=== PATIENT | female | born 1965 | race Caucasian/White ===

== ENCOUNTER 2025-09-16 00:35 | Inpatient (IN) | payer OTHER, SELFPAY ==
[2025-09-15 19:56] VITALS: BP 159/83
[2025-09-15 20:17] LABS: Urine Character Clear (Clear)
[2025-09-15 20:28] LABS: Urine Red Blood Cell 0-2 /HPF (0-2)
[2025-09-15 22:30] VITALS: BMI 22.2
--- NOTE | 2025-09-15 22:31 | ED.GENMED ---
History of Present Illness
General
Chief Complaint: Urinary Symptoms
Source: patient and spouse
Time Seen by Provider: 09/15/25 22:17
History of Present Illness
History of Present Illness:
This patient is a 59-year-old female who states that on August 30 she developed typical UTI symptoms described as suprapubic pressure, hematuria, urgency, frequency. Via telehealth, she obtained a prescription for Macrobid which she took for 5
days. A urine sample was not collected. She says she has felt better almost immediately after starting the antibiotic. Then, this morning she noted suprapubic pressure which is constant and nonradiating. She does not note associated dysuria
urgency frequency or hematuria. She denies flank pain, upper abdominal pain, chest pain, shortness of breath, fever, chills. She states she has been drinking a lot of water today but feels that she is urinating less than usual. She denies change
to the color of her urine. She did feel nauseous this evening but that has since resolved, no vomiting. Patient denies other complaints.
Past History
Past History
ED Past Medical History: None
ED Past Surgical History: None
Social History
Tobacco: Non-smoker
Alcohol: Occasional
Drug: None
Personal:
Living: with family
Phy Exam
Physical Exam
Physical Exam:
GENERAL: Alert , in no apparent distress
EYE: pupils equal and reactive
NECK: Supple, no significant adenopathy.
ENT: o/p clr, mmm.
CARDIAC: Regular rate and rhythm .
LUNGS: Clear breath sounds bilaterally, no acute respiratory distress, no wheezes/rales/rhonchi
ABDOMEN: Soft, mild suprapubic tenderness, no r/g, no cvat
NEUROLOGICAL: Alert and oriented, no focal neuro deficits
SKIN: Warm and dry, skin intact.
MUSCULOSKELETAL: No edema, well perfused.
PSYCH: Normal and appropriate interaction.
Course
Orders/Labs/Results
Orders:
Orders
09/15/25 20:04
Osmolality, Random Urine Urgent
Date Specimen was Collected: 09/15/25
Time Specimen was Collected: 20:01
Comment: ADD ON
Urinalysis Reflex To Culture Urgent
Date Specimen was Collected: 09/15/25
Time Specimen was Collected: 20:01
Urine Microscopic Reflex Cult Urgent
Urine Sodium Urgent
Date Specimen was Collected: 09/15/25
Time Specimen was Collected: 20:01
Comment: ADD ON
Urine Culture Urgent
ZACHARY Source: U
Specimen Description:
Date Specimen was Collected: 09/15/25
Time Specimen was Collected: 20:01
09/15/25 22:30
0.9% Sodium Chloride 1000 ml [Nss] 1,000 ml IV BOLUS
09/15/25 22:31
CT Abd/pel Without Iv Or Oral Urgent
Comment:
Reason For Exam: pain
09/15/25 22:41
Complete Blood Count/No Diff Urgent
Comprehensive Metabolic Panel Urgent
Lipase Urgent
Serum Osmolality Urgent
Comment: ADD ON
09/15/25 23:00
3% Sodium Chloride 250 ml [Sodium Chloride 3%] 250 ml IV ONCE
09/15/25 23:25
Add On- LAB Urgent
Tests Added?: urine Na
09/16/25 00:24
Admit/Transfer Patient As Directed
Co-Sign Provider:
Level of Care: Inpatient admission
Assign to:: IMU- Intermediate Care
Physician / Group: nu
Diagnosis: acute hyponatremia
Reason for Hospitalization: acute hyponatremia
Expected length of stay greater than two midnights?: Yes
ELOS- Estimated Length of Stay in days: 2
I certify the patient meets the requirements for IP care: Yes
09/16/25 00:25
PRN Pain Medication Management As Directed
May give lesser potent ordered pain med per pt: Yes
preference::
Protocol:: Medication orders for pain may be administered in a
manner that supports deferring to patient preference
when the pt is:
- Requesting an ordered lesser potent pain medication.
Least to most potent pain medications are defined
as: acetaminophen < NSAID < tramadol < opioids
(morphine, oxycodone, hydromorphone).
- Requesting a lesser dose of the same medication IF
ORDERED.
- Requesting a less intrusive route of administration
if both routes are prescribed by the provider (PO <
IV).
09/16/25 00:26
Code Status As Directed
Resuscitation Status: Full Code
09/16/25 01:47
Acetaminophen [Tylenol] 650 mg PO Q4HPRN PRN
Bisacodyl [Dulcolax] 10 mg RECTAL [id number] PRN
Docusate W/Senna [Senokot-S] 1 tablet PO BIDPRN PRN
Ondansetron Injectable [Zofran] 4 mg IV Q6HPRN PRN
Polyethylene Glycol Powder [Miralax] 17 grams PO DAILYPRN PRN
09/16/25 01:47
NEPHROLOGY CONSULT Routine
Consulting Provider: Jose May V.
Was physician already notified: Yes
Activity As Directed
Activity Level: With Assistance
Intake/ Output As Directed
Frequency: Per unit guidelines
Medical Records Request [Obtain Records] As Directed
Dates of Information to be Released: October 26 2024 - September 14 2025
Type of Information Requested: Lab Results
Obtain Records from: Tono Miranda MD, [address], [place] [place]
Neurological Checks As Directed
Frequency: q4h
Vital Signs As Directed
Frequency: Per unit guidelines
DX Deep Vein Thrombosis Video Routine
09/16/25 02:16
BMP [Basic Metabolic Panel] Routine
09/16/25 Breakfast
Regular
At Your Request: Full Participation
Fluid Restriction: 1800 mL/day (60 oz)
09/16/25 06:24
BMP [Basic Metabolic Panel] IN AM
Cortisol, Random IN AM
TSH IN AM
09/16/25 18:00
Enoxaparin Sodium [Lovenox] 40 mg SC QPM
09/18/25 11:00
DC Protocol for Telemetry ONCE
Abnormal Lab Results
09/15/25 09/15/25
20:04 22:41
RBC 3.55 L 10^6/uL
(4.20-5.40)
Hgb 11.2 L g/dL
(12.0-16.0)
Hct 31.8 L %
(37.0-47.0)
MCH 31.5 H pg
(27.0-31.0)
Sodium 115 L* mmol/L
(135-145)
Potassium 3.4 L mmol/L
(3.5-5.1)
Chloride 84 L mmol/L
(98-107)
BUN 5 L mg/dl
(7-17)
Creatinine 0.4 L mg/dL
(0.6-1.0)
Glucose 108 H mg/dl
(70-99)
Serum Osmolality 244 L mOsm/kg
(275-300)
Urine Ketones 3+ A
(Negative)
Leukocyte Esterase Rfl 1+ A
(Negative)
Urine Bacteria (Reflex) Few A
(Negative)
Urine Sodium 119 H mmol/L
(30-90)
09/15/25 22:41
09/15/25 22:41
Vital Signs
Initial and Last Documented VS:
Initial Vital Signs
Temp Pulse Resp BP Pulse Ox
98.3 F 73 16 159/83 98
09/15/25 19:56 09/15/25 19:56 09/15/25 19:56 09/15/25 19:56 09/15/25 19:56
Last Documented Vital Signs
Temp Pulse Resp BP Pulse Ox
98.7 F 79 16 120/84 95
09/16/25 14:34 09/16/25 14:34 09/16/25 14:34 09/16/25 14:34 09/16/25 14:34
*Pulse Oximetry
SaO2: 98
Oxygen Mode of Delivery: Room air
Patient hypoxic: no
*Critical Care Note
Total Time (30-74mins, 75-104mins- exclusive of procedures): Not Applicable
Update Note
Update Note:
Patient presents to the Emergency Department with ____suprapubic pressure, nausea
Number and Complexity of Problems Addressed at the Encounter
� Chronic conditions affecting care:
� Acute Exacerbation and/or Progression of Chronic Illness:
� Differential Diagnosis includes: But not limited to interstitial cystitis, UTI, kidney stone, etc. etc.
Amount and/or Complexity of Data to be Reviewed and Analyzed
� I performed an independent evaluation of and my interpretation is:
EKG:
CT:vision read: nad
Xrays:
Laboratory Studies: Severe hyponatremia 115
Other:
� Review of other/old records reveals:
� Clinical information was obtained by an independent historian: who is bedside and recalls name of antibiotic that she is taking
� Prescriptions/Medications Considered but not given:
� Further testing considered but not performed:
Risk of Complications and/or Morbidity or Mortality of Patient Management
� Social determinants of health affecting care:
� Discussion with other providers (PCP, Hospitalists, Consultants, etc):
� Escalation of care including admission/observation vs risk of discharge considered: Case discussed with nephrology Dr. May, recommends 3% normal saline x 250 mL at 20 cc/h. This was communicated with the nurse and the
hospitalist for admission. Unclear etiology of hyponatremia although her excessive water consumption is a likely contributing or primary factor. Seizure pads applied, patient and updated.
ED Attending Note
-
Portions of this chart may have been created with voice recognition software.� Occasional wrong word or��sound alike� substitutions may have occurred due to the inherent limitations of voice recognition software.
Discharge Plan
Departure
Patient Disposition: Admit
Date of Disposition: 09/15/25
Time of Disposition: 23:54
Admit to: Telemetry
Presentation/result/management discussed w/ accepting MD/DO: Hospitalist
Condition: Fair
Discharge Problem:
Acute hyponatremia
Interventions
Interventions:
*Risk Screen - Suicide Last Done: 09/15/25 19:56
*General Assessment Last Done: 09/15/25 22:34
*Neglect/Abuse Screening Last Done: 09/15/25 22:34
*ED- Fall Risk Assessment Last Done: 09/15/25 22:34
*ED COVID-19 Vaccine History Last Done: 09/15/25 22:34
*ED Influenza Vaccine History Last Done: 09/15/25 22:34
*Nursing Disposition Last Done: 09/16/25 01:45
ED-Female Genitourinary Assessment Last Done: 09/15/25 22:45
Discharge Date and Time
Discharge Date/Time: 09/16/25 01:45
[2025-09-15 22:32] VITALS: BP 149/84
[2025-09-15 22:33] VITALS: BP 149/84
[2025-09-15] MEDS: NSS 1000 IV (22:43)
[2025-09-15 22:49] LABS: Hematocrit 31.8 % (37.0-47.0); Hemoglobin 11.2 g/dL (12.0-16.0); Mean Corp Hgb Conc. 35.2 g/dL (33.0-37.0); Mean Corpuscular Volume 89.6 fL (81.0-99.0); Platelet Count 213 10^3/uL (130-400); Red Cell Dist. Width 11.6 % (11.5-14.5)
[2025-09-15 23:13] LABS: ALT (SGPT) 24 U/L (0-35); AST (SGOT) 26 U/L (14-36); Albumin 4.6 g/dl (3.5-5.0); Alkaline Phosphatase 48 U/L (38-126); Blood Urea Nitrogen 5 mg/dl (7-17); Calcium 8.7 mg/dl (8.4-10.2); Carbon Dioxide 22 mmol/L (22-30); Chloride 84 mmol/L (98-107); Estimated Creatinine Clearance 89 ml/min; Glucose 108 mg/dl (70-99); Lipase 49 U/L (23-300); Potassium 3.4 mmol/L (3.5-5.1); Sodium 115 mmol/L (135-145); Total Protein 7.1 g/dl (6.3-8.2); eGFR > 60.00
[2025-09-15 23:21] VITALS: BP 137/82
--- NOTE | 2025-09-15 23:57 | HPS.HSE ---
Family Physician
-
Family Physician: Tono Miranda
Chief Complaint
-
Abdominal pressure
History of Present Illness
Patient is a 59-year-old with no known significant past medical history presenting to the emergency department with sensation of abdominal pressure as well as fatigue.
Patient reports history of recurrent urinary tract infections and she last had a infection in the beginning of August. She had taken approximately 5 days of Macrobid with improvement in her symptoms. She says she was in usual state of health up
until the day of admission. She stated that she had sexual intercourse the previous evening and when she woke up she had abdominal pressure and pelvic pressure. She denies dysuria frequency or urgency. Due to the pressure she felt she might be
having a urinary tract infection. She denied nausea or vomiting. Denied having any diarrhea and she denied having any constipation. She decided to flush urinary system and drank 1016 ounce bottles of pure water. She also did not eat anything up
until dinnertime. She had otherwise been eating normally for her which is a form of intermittent fasting daily. She denies any alcohol use. She does not smoke. She denies any NSAID use. She denies any ngze-bxt-aeojlnt medications except for
probiotic which she took when she was on the Macrobid. She denies any prior history of seizures. She denies any prior surgeries. He is up-to-date on malignancy screening. She tells me that she had blood work within the last 3 to 6 months that
was within the normal range.
On arrival in the emergency department she was afebrile, blood pressure was 130/80 with a pulse of 84 and she was satting 98% on room air. CBC was unremarkable. Electrolytes notable for a sodium of 115 with a normalized BUN of 5 and creatinine of
0.4 glucose of 108. She had a UA with 1+ leukocyte esterase and few bacteria. pH was 7 and specific gravity was 1.015. 3+ urinary ketones. No glucose. CT of the abdomen pelvis performed without contrast. But is filled with fluid but not
particularly distended. No hydro
Medical History
Past Medical History
Past Medical History: Reports None
Past Surgical History: Reports None
Social History
Tobacco: Non-smoker
Alcohol: None
Drug: None
Personal:
Living: With Family
Employment: Employed
Family History
Family History: Not pertinent
Allergies / Home Medications
Allergies reflects when Allergies were last updated in [facility].
Home Medications with original date entered in [facility]
Allergy/Medication List:
Allergies
Allergy/AdvReac Type Severity Reaction Status Date / Time
Sulfa (Sulfonamide Allergy Hives Verified 09/15/25 22:30
Antibiotics)
Home Medications
No Meds [No Current Medications] 09/15/25
Review of Systems
-
Constitutional: Reports No Symptoms
EENT: Reports No Symptoms
Respiratory: Reports No Symptoms
Cardiac: Reports No Symptoms
Abdomen/GI: Reports No Symptoms
: Reports No Symptoms
Musculoskeletal: Reports No Symptoms
Skin: Reports No Symptoms
Neurological: Reports No Symptoms
Endocrine: Reports Polydipsia
Hematologic/Lymphatic: Reports No Symptoms
Psych: Reports No Symptoms
Physical Exam
Vital Signs
Vital Signs
Temp Pulse Resp BP Pulse Ox
98.2 F 80 14 137/82 97
09/15/25 22:33 09/15/25 23:30 09/15/25 22:45 09/15/25 23:21 09/15/25 23:30
Physical Exam
General: Well Developed, Well Nourished and No Apparent Distress
HEENT: NormoCephalic, Moist mucous membranes and Atraumatic
Respiratory: Clear
Cardiac: S1/S2 and Regular Rhythm; No Murmur or Rub
GI: Soft, Non Tender, Non Distended and Normal Bowel Sounds; No Organomegaly
Rectal: Deferred by Provider
Musculoskeletal: No Clubbing, No Cyanosis and No Edema
Skin: No Rash
Neuro: AO x 3 and Nonfocal/grossly intact
Hematologic/Lymphatic: No Lymphadenopathy
Psych: Calm
Laboratory Results
-
09/15/25 22:41
09/15/25 22:41
Laboratory Results
Total Bilirubin 1.2 mg/dl (0.2-1.3) 09/15/25 22:41
AST 26 U/L (14-36) 09/15/25 22:41
ALT 24 U/L (0-35) 09/15/25 22:41
Alkaline Phosphatase 48 U/L (38-126) 09/15/25:41
Lipase 49 U/L (23-300) 09/15/25 22:41
Data Reviewed
-
CT Scan: Image Personally Visualized and interpreted
Lab Data: Labs Reviewed by me
Impression/Plan
-
IMPRESSION:
59-year-old generally healthy female with no known signal past medical history and no medication use and no recent exposures presenting to the emergency department with abdominal pressure and extensive oral intake found to have a sodium of 115. UA
is unremarkable. Urine osmolality and urine sodium are pending at this time. She endorsed polyuria with 160 oz water intake today (~5L).She is fatigued but is alert and oriented x 3. No seizures. Has no history of significant dehydration,
alcohol dependence, liver or cardiac disease. She is not on any medications. Her last antibiotic was Macrobid which used about 2 weeks ago.
PLAN:
Hyponatremia -based on history of polydipsia suspect very acute versus acute on chronic hyponatremia. This will depend on her prior blood work. She is hemodynamically stable and showed no dehydration. She appears euvolemic on exam. UA without
signs of acute infection. The specific gravity is higher than expected if she is self correcting and so appears there is impaired free water clearance.
-Admit to IMU
-Urine osm's 357 c/w SIADH
-checking TSH and cortisol
- no pulmonary symptoms, no neurological symptoms, additional imaging per nephrology
- ins and outs
- w/ euvolemia, 1L free water restriction
- serum sodium q 4 - 6 hours
-Starting hypertonic saline 250 mL at 20 cc an hour
-Nephrology consulted
-Orthostatic vitals
DVT prophylaxis�Lovenox subcu
CODE STATUS�full code
[2025-09-16] VITALS (11 sets, daily range): BP systolic 110–138; BP diastolic 70–91; BMI 21.4
[2025-09-16] MEDS: SODIUM CHLORIDE 3% 250 IV
--- NOTE | 2025-09-16 02:25 | TRANSFER ---
Addendum entered by Darcy Harvey RN 09/16/25 03:19:
0302: Critical NA result communicated to Provider (Ramez) via TT.
0307: instructed to inform Neph
0316: Nephrology logging operations inspector (Diodato) TTd with Critical Value
Original Note:
transfer note: Pt received from the ED via stretcher on the cardiac monitor technician. Pt ambulated to the bed. Pt oriented to the unit, use of the call barnett and plan of care for the shift. Pt wiped with CHG, tele replaced with IMU monitor. Cody Romano,
at bedside. Call barnett and personal belongings within reach, IVF infusing (see emr for details), all needs met at this time. AAAA.
[2025-09-16 03:00] LABS: Blood Urea Nitrogen 4 mg/dl (7-17); Calcium 8.7 mg/dl (8.4-10.2); Carbon Dioxide 21 mmol/L (22-30); Chloride 90 mmol/L (98-107); Estimated Creatinine Clearance 89 ml/min; Glucose 110 mg/dl (70-99); Potassium 3.9 mmol/L (3.5-5.1); Sodium 118 mmol/L (135-145); eGFR > 60.00
[2025-09-16 08:02] LABS: Blood Urea Nitrogen 4 mg/dl (7-17); Calcium 9.3 mg/dl (8.4-10.2); Carbon Dioxide 22 mmol/L (22-30); Chloride 97 mmol/L (98-107); Estimated Creatinine Clearance 89 ml/min; Glucose 104 mg/dl (70-99); Potassium 4.2 mmol/L (3.5-5.1); Sodium 128 mmol/L (135-145); eGFR > 60.00
--- NOTE | 2025-09-16 08:06 | W.CON.NEPH ---
Consultation
-
Date/Time Consultation Requested: 09/16/2025 7:30 AM
Date/Time Consultation Performed: 09/16/2025 8:00 AM
Requesting Provider: Dr. Abi Narvaez
Performing Provider: Dr. May
Reason for Consultation: Hyponatremia
Medical History
-
Chief Complaint: Hyponatremia
History of Present Illness:
Patient is a 59-year-old with no known significant past medical history presenting to the emergency department with sensation of abdominal pressure as well as fatigue.
Patient reports history of recurrent urinary tract infections and she last had a infection in the beginning of August. She had taken approximately 5 days of Macrobid with improvement in her symptoms. She says she was in usual state of health up
until the day of admission. She stated that she had sexual intercourse the previous evening and when she woke up she had abdominal pressure and pelvic pressure. She denies dysuria frequency or urgency. Due to the pressure she felt she might be
having a urinary tract infection. She denied nausea or vomiting. Denied having any diarrhea and she denied having any constipation. She decided to flush urinary system and drank 1016 ounce bottles of pure water. She also did not eat anything up
until dinnertime. She had otherwise been eating normally for her which is a form of intermittent fasting daily. She denies any alcohol use. She does not smoke. She denies any NSAID use. She denies any uzfe-qyg-ntlbxdx medications except for
probiotic which she took when she was on the Macrobid. She denies any prior history of seizures. She denies any prior surgeries. He is up-to-date on malignancy screening. She tells me that she had blood work within the last 3 to 6 months that
was within the normal range.
On arrival in the emergency department she was afebrile, blood pressure was 130/80 with a pulse of 84 and she was satting 98% on room air. CBC was unremarkable. Electrolytes notable for a sodium of 115 with a normalized BUN of 5 and creatinine of
0.4 glucose of 108. She had a UA with 1+ leukocyte esterase and few bacteria. pH was 7 and specific gravity was 1.015. 3+ urinary ketones. No glucose. CT of the abdomen pelvis performed without contrast. But is filled with fluid but not
particularly distended. No hydro. I was contacted by the emergency room we proceeded forward with hypertonic saline at 20 cc/h after nephrology was consulted for hyponatremia.
Past Medical History
Past Medical History: None
Social History
Tobacco: Non-Smoker
Alcohol: None
Drug: None
Personal:
Family History
Family History: Not Pertinent
Allergies / Home Medications
Allergy/AdvReac Type Severity Reaction Status Date / Time
Sulfa (Sulfonamide Allergy Hives Verified 09/15/25 22:30
Antibiotics)
�Medication �Instructions �Recorded �Confirmed �Type
No Meds [No Current Medications] 09/15/25 09/15/25 History
Review of Systems
-
History Source: Patient
All other systems: Negative unless noted
Physical Exam
Vital Signs
Vital Signs
Temp Pulse Resp BP Pulse Ox
98.2 F 70 12 138/74 96
09/16/25 03:00 09/16/25 03:15 09/16/25 03:15 09/16/25 02:00 09/16/25 02:00
Lab Results
09/15/25 22:41
09/16/25 06:24
WBC 7.0 10^3/uL (4.8-10.8) 09/15/25 22:41
RBC 3.55 10^6/uL (4.20-5.40) L 09/15/25 22:41
Hgb 11.2 g/dL (12.0-16.0) L 09/15/25 22:41
Hct 31.8 % (37.0-47.0) L 09/15/25 22:41
Plt Count 213 10^3/uL (130-400) 09/15/25 22:41
Sodium 128 mmol/L (135-145) L D 09/16/25 06:24
Potassium 4.2 mmol/L (3.5-5.1) 09/16/25 06:24
Chloride 97 mmol/L (98-107) L 09/16/25 06:24
Carbon Dioxide 22 mmol/L (22-30) 09/16/25 06:24
BUN 4 mg/dl (7-17) L 09/16/25 06:24
Creatinine 0.4 mg/dL (0.6-1.0) L 09/16/25 06:24
eGFR > 60.00 09/16/25 06:24
Glucose 104 mg/dl (70-99) H 09/16/25 06:24
Calcium 9.3 mg/dl (8.4-10.2) 09/16/25 06:24
Albumin 4.6 g/dl (3.5-5.0) 09/15/25 22:41
Physical Exam
General: AOx3, Nontoxic , NAD
HEENT: PERRL, EOMI, Anicteric, Conjunctivae Clear, Ear/Nose Intact, Hearing Normal, Oropharynx Clear/Moist, Dentition Intact, Facial Symmetry, Neck Supple, Neck: Trachea Midline, No JVD and No Thyromegaly, no Bruits
Respiratory: Clear to auscultation bilaterally with normal lung exersion
Cardiac: S1/S2 and Regular Rate/Rhythm
Breast: Deferred by me
Abdomen: Soft, Nontender, Nondistended, Normal Bowel Sounds and No Hepatosplenomegaly
Rectal: Deferred by Provider
Genito-urinary: No Costovertebral Tenderness
Extremities: No Clubbing, No Cyanosis and No Edema
Skin: No Rash or open lesions
Neuro: Nonfocal/Grossly Intact, CN II-XII (Intact) and Strength (Musculoskeletal exam 5 out of 5 both upper and lower extremities)
Hematologic/Lymphatic: No Cervical Lymphadenopathy, No Submandibular Lymphadenopathy and No Supraclavicular Lymphadenopathy
Psych: Mood/afflect pleasant, Insight/judgement good and Appropriate
Vascular: plus 2 pedal and radial pulses
Data Reviewed
-
Radiology: Report Reviewed by me (CT scan of abdomen and pelvis reviewed with no acute findings)
Labs: Labs Reviewed by me (BMP CBC urine osmolality serum osmolality)
Assessment/Plan
-
Impression:
Euvolemic hyponatremia
Plan:
Hyponatremia:
- Likely due to copious amount of fluid ingestion
-Cortisol thyroid function test unremarkable
-Maintain fluid restriction (adjusted)
- No more hypertonic, DC drip
-Recheck lites later this afternoon at noon
[2025-09-16 08:21] LABS: Cortisol, Random 13.7 ug/dl; TSH 5.04 uIU/ml (0.47-4.68)
--- NOTE | 2025-09-16 11:31 | PTCARENOTE ---
Received pt from previous shift. Pt AAOX3. NSR on tele monitor. Pt denies pain. Sodium 128. Poor appetite this am. at bedside. Plan of care ongoing.
[2025-09-16 12:40] LABS: Carbon Dioxide 24 mmol/L (22-30); Chloride 101 mmol/L (98-107); Potassium 4.1 mmol/L (3.5-5.1); Sodium 133 mmol/L (135-145)
--- NOTE | 2025-09-16 13:45 | W.DCSUMMARY ---
Discharge Summary
Discharge Data
Date of Admission: 09/16/25
Date of Discharge: 09/16/25
Total time spent discharging patient (in min): 51
-
Pending Results: No
Hospital Course
Ms. Mendoza is a 59-year-old female with no significant medical history presented with abdominal pressure and fatigue. She was found to have significant hyponatremia with a initial serum sodium of 115. This is believed to be due to recently drinking
copious amounts of free water in order to avoid recurrent urinary tract infection. Apparently she had recently been treated with 5 days of Macrobid for urinary tract infection and was beginning to develop dysuria. In the ED, she was started on
hypertonic saline and fluid restriction and admitted for further evaluation management. Her urinalysis appeared relatively bland and her dysuria had resolved.
Her TSH and cortisol were within normal limits. Her vital signs remained within normal limits. She was monitored closely by nephrology while inpatient. Her hyponatremia was believed to be acute and so was appropriately corrected relatively
rapidly. Her serum sodium was 133 at the time of discharge and her symptoms had resolved. She was discharged to home and will need to follow-up with her primary care physician for repeat blood work in 2 to 3 days to monitor her serum sodium level.
General: No Apparent Distress, Comfortable and Conversant
HEENT: NormoCephalic, Moist mucous membranes, Atraumatic
Respiratory: Clear and Non Labored Respirations
Cardiac: S1/S2 and Regular Rhythm; No Rub or Gallop
GI: Soft, Non Tender, Non Distended and Normal Bowel Sounds
Musculoskeletal: No Edema, no deformity
: NO Narvaez
Neuro: Awake, Alert, Nonfocal/grossly intact
Psych: Calm and Intact Judgment/Insight
Discharge Plan
-
Patient Disposition: Home (Routine Discharge)
Discharge Diagnosis/Procedures: Acute hyponatremia
Diet: Restrict fluids to 64 oz
Blood Work: Repeat basic metabolic panel in 2 to 3 days to monitor serum sodium level
Activity Restrictions/Additional Instructions:
You were admitted for evaluation and management of acute hyponatremia. Your sodium levels and fatigue improved after being given hypertonic IV saline and placed on a fluid restriction. Your thyroid function and cortisol levels were normal. You
were monitored closely by hot sealing machine operator while inpatient. Your low sodium levels were very likely due to drinking copious amounts of free water which diluted your blood sodium level and caused your presenting fatigue. Please avoid drinking copious
amounts of free water in the future in order to avoid recurrence. Follow-up with your primary care physician for ongoing monitoring and repeat blood work.
Referrals:
Tono Miranda DO [Family Provider, Family Practice]
Prescriptions:
No Action
No Current Medications
0
Discharge Orders:
Discharge Patient (As Directed); Ordered 09/16/25
Ordered By: Ole Lorenzo
Discharge Date and Time
Print Language: UPPER SORBIAN
--- NOTE | 2025-09-16 14:53 | CM ---
CM following re: discharge planning.
Reviewed pt's chart, met with [pt. pt's spouse and son at bedside.
Pt is a 59 year old female admitted with primary dx of hyponatremia.
Pt reports she lives with and a son 2SH, 2 steps to enter, has 3 supportive children. 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
Discharge order noted. Pt is aware, expressed her agreement and she stated her and son will transport home.
No after care VN needs identified.
D/C plan: home no needs. and son to transport.
== END 2025-09-16 15:44 | disposition home or self-care (01) | DRG 645 ==
LOC: IMU 00:35
PROVIDERS: Emergency Medicine; ADMITTING PHYSICIAN Internal Medicine; ATTENDING PHYSICIAN Internal Medicine; CONSULT PHYSICIAN Specialist; EMERGENCY PHYSICIAN Emergency Medicine; FAMILY PHYSICIAN Family Medicine
DX: E22.2 Syndrome of inappropriate secretion of antidiuretic hormone (principal); R63.1 Polydipsia; Z87.440 Personal history of urinary (tract) infections
CPT/HCPCS: 74176; 80048; 80051; 80053; 81003; 81015; 82533; 83690; 83930; 83935; 84300; 84443; 85027; 87086; 96361; 96374; 99284